=== PATIENT | female | born 1955 | race Caucasian/White ===

== ENCOUNTER 2017-07-30 10:32 | Day surgery (SDC) | payer BC ==
[2017-07-27 09:38] VITALS: BMI 27.1
[~2017-07-30 10:32] MED LIST: DEXAMETHASONE SOD PHOSPHATE 10 MG/ML 1 ML VIAL IV ONE; LACTATED RINGERS 1,000 ML IV SCH; MIDAZOLAM 2 MG/2 ML VIAL IV PRN; ONDANSETRON ODT 4 MG TAB PO ONE; SCOPOLAMINE 1.5MG/72HR PATCH TRANSDERM ONE; ceFAZolin IN SWFI 2 GM/20 ML SYRINGE IVP ONE; fentaNYL (PF) 50 MCG/ML 2 ML AMP IV PRN
[2017-07-30 11:18] VITALS: TEMP 97.7
[2017-07-30] MEDS ORDERED: ONDANSETRON 4 MG/2 ML VIAL IVP ONE (11:29)
[2017-07-30] MEDS ORDERED: PROPOFOL 10 MG/ML 20 ML VIAL IV ONE (12:30)
[2017-07-30] MEDS ORDERED: MIDAZOLAM 2 MG/2 ML VIAL ONE (12:30)
[2017-07-30] MEDS ORDERED: GLYCOPYRROLATE 0.2 MG/ML 2 ML VIAL ONE (12:30)
[2017-07-30] MEDS ORDERED: fentaNYL (PF) 50 MCG/ML 2 ML AMP ONE (12:30)
[2017-07-30] MEDS ORDERED: KETAMINE 10 MG/ML 20 ML VIAL ONE (12:30)
[2017-07-30] MEDS ORDERED: BUPIVACAINE (PF) 0.5% 30 ML VIAL SQ ONE ×2 (13:01)
--- NOTE | 2017-07-30 13:12 | FL ---
EXAMINATION TYPE: FL guidance operating room, XR foot limited RT DATE OF EXAM: 07/30/2017 CLINICAL HISTORY: Right first toe bunion TECHNIQUE: Fluoroscopy. Limited intraoperative views right foot. COMPARISON: None. FINDINGS: Fluoroscopic guidance was provided during bunion correction surgical procedure performed zach Faye. A total of 1 seconds of fluoroscopic time was utilized during the procedure and 2 sp ot intraoperative images are acquired. Images acquired show localization of great toe from lateral view. IMPRESSION: As Above.
[2017-07-30] MEDS ORDERED: MORPHINE SULFATE 4 MG/0.8 ML SYRINGE (INJ) IV PRN ×4 (13:21)
[2017-07-30] MEDS ORDERED: HYDROcodone/APAP 5-325MG 1 EACH TAB PO PRN ×2 (13:21)
--- NOTE | 2017-07-30 13:31 | P.OP ---
Date of Procedure: 07/30/17 Preoperative Diagnosis: 1. Mild hallux rigidus with dorsal impingement Postoperative Diagnosis: Same Procedure(s) Performed: Right first MTP cheilectomy Anesthesia: MAC, local Surgeon: Karthik Faye Estimated Blood Loss (ml): 1 IV fluids (ml): 700 Pathology: none sent Condition: stable Disposition: PACU Indications for Procedure: The patient is a very pleasant 62-year-old female with a medical history significant for hallux rigidus. She saw me in the office. Her physical exam was consistent with dorsal impingement. She had no pain in the mid range of motion. Her x-rays showed a small loose body and dorsal osteophyte off the distal first metatarsal. We discussed nonsurgical and surgical treatment options. The patient requested surgery as she has failed a greater than 6 month course of nonsurgical treatment. Due to her minimal arthritis and physical exam findings of dorsal impingement I recommended a first MTP cheilectomy. We discussed potential risks and complications of surgery including but not limited to risk of anesthesia, superficial infection, deep infection, delayed wound healing, damage to blood vessels or nerves, intraoperative fracture, postoperative fracture, stiffness, progression of arthritis, to satisfaction with surgery, need for further surgery, postoperative medical complications, and possibly loss of life or limb. The patient voiced her understanding of this and provided consent to go forward with surgery. Description of Procedure: The patient was identified in preoperative holding and the correct right leg was marked with my initials. I reviewed the consent form with the patient and her . All of their questions were answered. The patient was then brought back to the operating room. She was positioned on the OR table and a Mac anesthetic was administered. A tourniquet was applied proximal aspect of the right leg. Preoperative antibiotics were administered. All bony prominences well-padded. The right leg was then prepped and draped in standard sterile fashion. Prior to starting surgery timeout was performed identifying the correct patient, operative extremity, and procedure. The patient's leg was then elevated, exsanguinated with an Esmarch bandage, and the tourniquet was inflated to 250 mmHg. I began by outlining a longitudinal incision centered over the dorsal aspect of the first MTP joint. Skin incision was made with a 15 blade scalpel. Dissection was carried down carefully through subcutaneous tissue with tenotomy scissors. The EHL tendon sheath was incised and the EHL was retracted laterally. The capsule over the first MTP joint was incised longitudinally in line with the skin incision. The synovium was inflamed. A small amount of synovium was excised. There was a small loose body in the dorsal aspect of the first MTP joint. Baby Eran retractors were placed medially and laterally. A small microsagittal saw was used to remove the small dorsal osteophyte off the distal first metatarsal flush with the metatarsal shaft taking care to not and it certainly create a stress riser. On inspection of the first metatarsal head there was a pencil eraser size area of full-thickness cartilage loss. There was full-thickness cartilage of the base of the proximal phalanx. The wound was copiously irrigated. The capsule was closed with a running 0 Vicryl. The subcutaneous tissue was reapproximated using 3-0 Monocryl. The skin was closed with 3-0 nylon horizontal mattress stitches. Tendon also Percent Marcaine was infiltrated around the incision. A lateral x-ray was taken verifying the compression of the distal osteophyte. A sterile dressing consisting of Adaptic , 4 x 4, and web roll was applied. I verified that all instrument, sponge, and sharp counts were correct. The patient was then awoken from her anesthetic, transferred from the or table to the rmartha, and brought to PACU without procedure well.
[2017-07-30] MEDS ORDERED: HYDROcodone/APAP 5-325MG 1 EACH TAB PO ONE (13:44)
[2017-07-30 13:49] VITALS: RESP 18
[2017-07-30 14:12] VITALS: BP 112/72; PULSE 84
== END 2017-07-30 14:20 | disposition home or self-care (01) ==
LOC: OR 10:32
PROVIDERS: ATTEND Orthopaedic Surgery
DX: M20.21 Hallux rigidus, right foot (principal); M25.871 Other specified joint disorders, right ankle and foot; Z87.891 Personal history of nicotine dependence; K21.9 Gastro-esophageal reflux disease without esophagitis; Z87.11 Personal history of peptic ulcer disease; G47.33 Obstructive sleep apnea (adult) (pediatric); E07.9 Disorder of thyroid, unspecified; I10 Essential (primary) hypertension; E78.5 Hyperlipidemia, unspecified; M79.7 Fibromyalgia; R41.3 Other amnesia; Z79.890 Hormone replacement therapy; Z79.51 Long term (current) use of inhaled steroids; Z79.899 Other long term (current) drug therapy; Z88.5 Allergy status to narcotic agent
CPT/HCPCS: 73620; 28289; J2250; J1100; J2405; J3010; J2704; J0690